=== PATIENT | female | born 1945 | race Caucasian/White ===

== ENCOUNTER 2016-06-24 14:47 | Emergency (ER) | payer MEDICARE ==
[2016-06-24] MEDS ORDERED: ASPIRIN 81 MG TABLET, CHEWABLE PO ONE ×2 (14:51→15:05)
--- NOTE | 2016-06-24 15:02 | ER Document Report ---
ED Medical Screen (RME) - General Chief Complaint: Chest Pain > 30 Stated Complaint: CHEST PAIN Time seen by provider: 14:53 Mode of Arrival: Wheelchair Information source: Patient Notes: 70-year-old female presents to ED from her doctor's office for chest pain and abnormal EKG. Left shoulder jaw and neck pain started yesterday and has progressively gotten worse. Denies any chest pain. Denies any shortness of breath nausea or vomiting She is a patient of Dr. Edwards and her primary care doctor was on the phone with Dr. EDWARDS before sending her over to the emergency room. She states she received aspirin and nitroglycerin at the doctor's office I have greeted and performed a rapid initial assessment of this patient. A comprehensive ED assessment and evaluation of the patient, analysis of test results and completion of medical decision making process will be conducted by an additional ED providers. TRAVEL OUTSIDE OF THE [place] IN LAST 30 DAYS: No - HPI Severity: Moderate Pain Level: 3
--- NOTE | 2016-06-24 15:43 | ER Document Report ---
ED General - General Chief Complaint: Shoulder Pain Stated Complaint: CHEST PAIN Time seen by provider: 15:20 Mode of Arrival: Wheelchair Information source: Patient Notes: 70-year-old female who states shortly after waking up yesterday morning she developed sharp pain over the anterior and superior left shoulder that is worse with range of motion. She reports her course today it has gotten worse and kept her up all last night. She reports during the night it began radiating into the left neck. She denies any history of specific injury. She does report a history of bursitis for which she seen Dr. Arambula in the past but states that her current symptoms don't feel like her previous bursitis pain. She denies associated chest pain, abdominal pain, back pain, numbness weakness to extremities, diaphoresis, shortness breath, nausea, or vomiting. Patient reports she's been followed by Dr. Moore for many years for a leaky heart valve but is never had any cardiac catheterization. She reports never having had an out abnormal stress test and will not do a stress test now because she's heard bad things about them. Today when her pain began radiating into her left jaw she went to see a dentist says it she was evaluated there and found not to have any dental problems causing her pain. She was then referred to immediate care where she says an EKG was obtained and found to be abnormal and personnel there call Dr. Moore who recommended patient come to the emergency department for further evaluation. The patient reports at no time has she had any type of chest pain pressure or tightness. Physical Exam: General: Alert, appears well. HEENT: Normocephalic. Atraumatic. PERRLA. Extraocular movements intact. Oropharynx clear. Neck: Supple. Rotation of head to the right produces her left-sided neck and shoulder pain. No bony deformities palpated Respiratory: No respiratory distress. Clear and equal breath sounds bilaterally. Nontender to palpation Cardiovascular: Regular rate and rhythm. 2/6 systolic murmur Abdominal: Normal Inspection. Soft, non-tender. No distension. Normal Bowel Sounds. Back: Non-tender. No deformity or step off. Extremities: Moves all four extremities. Patient has tenderness to palpation anteriorly and superiorly over the humeral head on the left. Palpation along her trapezius muscle reproduces patient's pain. Patient is able to demonstrate good range of motion at the left shoulder joint but elevation to 90 also reproduces her pain. No bony deformities are palpated. She has no tenderness over her scapula. Elbow and wrist have good range of motion without discomfort. Radial median and ulnar nerve function the left hand is intact and she has 2+ radial and ulnar pulses. 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 Psychological: Normal affect. Normal Mood. Skin: Warm. Dry. Normal color. TRAVEL OUTSIDE OF THE [place] IN LAST 30 DAYS: No - Related Data Allergies/Adverse Reactions: No Known Allergies Allergy (Verified 06/24/16 15:04) Past Medical History - General Information source: Patient - Social History Smoking Status: Current Every Day Smoker Chew tobacco use (# tins/day): Yes Family History: Hypertension Patient has suicidal ideation: No Patient has homicidal ideation: No - Past Medical History Cardiac Medical History: Reports: Hx Hypercholesterolemia, Hx Hypertension, Other - Heart valve problem followed by Dr. Moore Endocrine Medical History: Reports: Hx Diabetes Mellitus Type 2 Renal/ Medical History: Denies: Hx Peritoneal Dialysis Review of Systems - Review of Systems Constitutional: denies: Chills, Fever EENT: denies: Ear pain, Throat pain Cardiovascular: See HPI Respiratory: See HPI Gastrointestinal: denies: Abdominal pain, Diarrhea, Nausea, Vomiting Genitourinary: denies: Burning, Dysuria Musculoskeletal: denies: Back pain Neurological/Psychological: denies: Weakness, Numbness Physical Exam - Vital signs Vitals: Resp Pulse Ox 17 98 06/24/16 15:23 06/24/16 15:23 Course - Re-evaluation Re-evalutation: 06/24/16 18:03 Shortly after patient's arrival I discussed case with her beer brewer Dr. Moore area he reports that he been told by immediate care that they could not health patient was having chest pain or shoulder pain and on that basis he recommended patient go to the emergency department. I discussed my findings that the pain the patient is complaining of is exclusively in her shoulder and made worse with range of motion and EKG findings do not show any evidence of acute ischemia he request patient be discharged on Tylenol with follow-up with him tomorrow. My suspicion is that her discomfort is cardiac is remote and she has had no change in her exam during her stay in emergency department. She is mildly hypertensive but I think this is likely due in part pain in part to her stay in the emergency department and does not require admission. I have asked her to also follow with Dr. Sanchez of orthopedics for further evaluation of her shoulder. - Vital Signs Vital signs: Temp Pulse Resp BP Pulse Ox 74 19 200/72 H 97 06/24/16 17:22 06/24/16 17:22 06/24/16 17:22 06/24/16 17:22 - Laboratory Result Diagrams: 06/24/16 15:44 06/24/16 15:44 Laboratory results interpreted by me: 06/24/16 06/24/16 15:44 15:44 WBC 16.8 H Hgb 11.7 L MCHC 31.1 L RDW 16.3 H Seg Neutrophils % 83.6 H Lymphocytes % 7.8 L Absolute Neutrophils 14.1 H Magnesium 1.5 L Creatine Kinase 21 L - EKG Interpretation by Me Additional EKG results interpreted by me: 06/24/16 15:44 EKG reviewed by myself shows sinus rhythm at 79 Q-wave in lead 3 no acute changes 06/24/16 18:02 EKG from intermediate care shows a sinus rhythm at 75 with Q-wave in lead 3 in no acute changes EKG #2 here shows sinus rhythm at 75 again with Q-wave in lead 3 and no acute changes Discharge - Discharge Clinical Impression: Shoulder pain, left Qualifiers: Chronicity: acute Qualified Code(s): M25.512 - Pain in left shoulder Hypertension Qualifiers: Hypertension type: essential hypertension Qualified Code(s): I10 - Essential ( primary) hypertension Condition: Stable Disposition: HOME, SELF-CARE Additional Instructions: High Blood Pressure When your blood pressure was taken today it was elevated. Today's reading was . Pre-hypertension/Hypertension: The patient has been informed that they may have pre-hypertension or Hypertension based on a blood pressure reading in the emergency department. I recommend that the patient call the primary care provider listed on their dischargge instructions or a physician of their choice this wee to arrage follow up for further evaluation of possible pre- hypertension or Hypertension. Sometimes, stress or illness causes a temporary elevation of your blood pressure. We suggest that you get your blood pressure measured three more times during the next few days to see if this is more than a temporary abnormality. If your blood pressure is greater than 150/90 on each occasion, you must have treatment. Some simple things you can do to help are: If you have blood pressure medicine but aren't using it regularly, start taking it again. Get some aerobic exercise for at least 20 minutes on a daily basis. (See your doctor before beginning a new exercise program.) Eat a low-fat diet. Lose excess weight. Avoid salty foods and avoid adding salt to any of the foods you eat. Avoid diet pills, decongestants, "energizing" herbs, and other medicines that elevate blood pressure. If left untreated, hypertension greatly enhances your risk for developing heart disease and strokes. Please don't ignore this problem. Referrals: MEDINA MOORE MD [ACTIVE STAFF] - Follow up tomorrow CHILANGO ARAMBULA MD [ACTIVE STAFF] - Follow up in 1 week
[2016-06-24 15:58] LABS: ABSOLUTE BASOPHILS # (AUTO) 0.1 10^3/uL (0.0-0.2); ABSOLUTE EOSINOPHILS # (AUTO) 0.1 10^3/uL (0.0-0.6); ABSOLUTE LYMPHOCYTES (AUTO) 1.3 10^3/uL (0.5-4.7); ABSOLUTE MONOCYTES (AUTO) 1.3 10^3/uL (0.1-1.4); ABSOLUTE NEUT (AUTO) 14.1 10^3/uL (1.7-8.2); BASOPHILS % (AUTO) 0.7 % (0-2); EOSINOPHILS % (AUTO) 0.4 % (0-6); HEMATOCRIT 37.6 % (36.0-47.0); HEMOGLOBIN 11.7 g/dL (12.0-15.5); HGB HCT DIFFERENCE -2.5; LYMPHOCYTES % (AUTO) 7.8 % (13-45); MEAN CORPUSCULAR HEMOGLOBIN 27.1 pg (27.0-33.4); MEAN CORPUSCULAR HGB CONC 31.1 g/dL (32.0-36.0); MEAN CORPUSCULAR VOLUME 87 fl (80-97); MONOCYTES % (AUTO) 7.5 % (3-13); RED BLOOD COUNT 4.31 10^6/uL (3.72-5.28); RED CELL DISTRIBUTION WIDTH 16.3 % (11.5-14.0); SEGMENTED NEUTROPHILS % (AUTO) 83.6 % (42-78); WHITE BLOOD COUNT 16.8 10^3/uL (4.0-10.5)
[2016-06-24 16:03] LABS: PROTHROMBIN TIME 12.2 SEC (11.4-15.4)
[2016-06-24 16:04] LABS: PARTIAL THROMBOPLASTIN TIME 29.9 SEC (23.5-35.8)
[2016-06-24 16:24] LABS: ALANINE AMINOTRANSFERASE 22 U/L (9-52); ALBUMIN 4.3 g/dL (3.5-5.0); ALKALINE PHOSPHATASE 123 U/L (38-126); ANION GAP 12 (5-19); ASPARTATE AMINO TRANSFERASE 20 U/L (14-36); BILIRUBIN,TOTAL 0.4 mg/dL (0.2-1.3); BLOOD UREA NITROGEN 15 mg/dL (7-20); CALCIUM 10.1 mg/dL (8.4-10.2); CARBON DIOXIDE 25 mmol/L (22-30); CHLORIDE 105 mmol/L (98-107); CREATINE KINASE 21 U/L (30-135); CREATININE RESULT 0.67 mg/dL (0.52-1.25); GLUCOSE 109 mg/dL (75-110); MAGNESIUM 1.5 mg/dL (1.6-2.3); POTASSIUM 4.3 mmol/L (3.6-5.0); SODIUM 142.2 mmol/L (137-145); TOTAL PROTEIN 6.9 g/dL (6.3-8.2)
[2016-06-24 16:38] LABS: TROPONIN I < 0.012 ng/mL
[2016-06-24] MEDS ORDERED: MAGNESIUM SULFATE/D5W 100 ML IV ONE (16:45)
[2016-06-24] MEDS ORDERED: MORPHINE SULFATE 10 MG/ML INJ IV ONE (18:06)
--- NOTE | 2016-06-24 19:01 | EKG REPORT ---
SEVERITY:- ABNORMAL ECG - SINUS RHYTHM PROBABLE INFERIOR INFARCT, OLD : Confirmed by: Yadiel Mena MD 24-Jun-2016 18:59:59
--- NOTE | 2016-06-24 19:01 | EKG REPORT ---
SEVERITY:- ABNORMAL ECG - SINUS RHYTHM PROBABLE INFERIOR INFARCT, OLD : Confirmed by: Yadiel Mena MD 24-Jun-2016 19:00:24
[2016-06-24 19:03] VITALS: BP 226/64
== END 2016-06-24 19:08 | disposition home or self-care (01) ==
LOC: ER 14:47
DX: M25.512 Pain in left shoulder (principal); I10 Essential (primary) hypertension; R07.9 Chest pain, unspecified; F17.210 Nicotine dependence, cigarettes, uncomplicated; E78.00 Pure hypercholesterolemia, unspecified; E11.9 Type 2 diabetes mellitus without complications
CPT/HCPCS: 93005; 99285; 96375; 96365; 36415; 82553; 82550; 83735; 85025; 85610; 85730; 80053; 84484; 71010; 73030; 93010; A9270; J2270; J3475

== ENCOUNTER → 2016-12-17 | Outpatient (CLI) | payer MEDICARE ==
[2016-12-17 09:55] LABS: ABSOLUTE BASOPHILS # (AUTO) 0.1 10^3/uL (0.0-0.2); ABSOLUTE EOSINOPHILS # (AUTO) 0.2 10^3/uL (0.0-0.6); ABSOLUTE LYMPHOCYTES (AUTO) 1.4 10^3/uL (0.5-4.7); ABSOLUTE MONOCYTES (AUTO) 0.5 10^3/uL (0.1-1.4); ABSOLUTE NEUT (AUTO) 6.5 10^3/uL (1.7-8.2); EOSINOPHILS % (AUTO) 2.7 % (0-6); HEMATOCRIT 34.5 % (36.0-47.0); HEMOGLOBIN 11.1 g/dL (12.0-15.5); HGB HCT DIFFERENCE -1.2; MEAN CORPUSCULAR HGB CONC 32.3 g/dL (32.0-36.0); MEAN CORPUSCULAR VOLUME 84 fl (80-97); MONOCYTES % (AUTO) 6.1 % (3-13); RED BLOOD COUNT 4.13 10^6/uL (3.72-5.28); RED CELL DISTRIBUTION WIDTH 16.8 % (11.5-14.0); SEGMENTED NEUTROPHILS % (AUTO) 74.2 % (42-78); WHITE BLOOD COUNT 8.8 10^3/uL (4.0-10.5)
[2016-12-17 10:23] LABS: ALANINE AMINOTRANSFERASE 24 U/L (9-52); ALBUMIN 3.8 g/dL (3.5-5.0); ALKALINE PHOSPHATASE 113 U/L (38-126); ANION GAP 9 (5-19); ASPARTATE AMINO TRANSFERASE 19 U/L (14-36); BILIRUBIN,DIRECT 0.3 mg/dL (0.0-0.4); BILIRUBIN,TOTAL 0.3 mg/dL (0.2-1.3); BLOOD UREA NITROGEN 14 mg/dL (7-20); CALCIUM 9.7 mg/dL (8.4-10.2); CARBON DIOXIDE 26 mmol/L (22-30); CHLORIDE 107 mmol/L (98-107); CHOLESTEROL 155.01 mg/dL (0-200); CREATININE RESULT 0.72 mg/dL (0.52-1.25); Direct HDL 56 mg/dL (>40); GLUCOSE 117 mg/dL (75-110); POTASSIUM 5.2 mmol/L (3.6-5.0); SODIUM 142.2 mmol/L (137-145); TOTAL PROTEIN 6.9 g/dL (6.3-8.2); TRIGLYCERIDES 166 mg/dL (<150)
[2016-12-17 10:35] LABS: DIRECT LDL 73 mg/dL (<100)
[2016-12-17 10:39] LABS: VLDL CHOLESTEROL 33.2 mg/dL (10-31)
[2016-12-19 10:39] LABS: INSULIN 6.1 uIU/mL (2.6-24.9); MICROALBUMIN RANDOM URINE 245.5 ug/mL (Not Estab.)
== END ==
LOC: OD 08:58
PROVIDERS: ATTEND Family Medicine
DX: I10 Essential (primary) hypertension (principal); E78.5 Hyperlipidemia, unspecified; E11.9 Type 2 diabetes mellitus without complications; I35.1 Nonrheumatic aortic (valve) insufficiency; J43.9 Emphysema, unspecified; F17.210 Nicotine dependence, cigarettes, uncomplicated; M75.52 Bursitis of left shoulder; Z79.899 Other long term (current) drug therapy
CPT/HCPCS: 36415; 80053; 80061; 82043; 82977; 83036; 83525; 85025

== ENCOUNTER → 2018-08-24 | Outpatient (CLI) | payer MEDICARE ==
--- NOTE | 2018-08-24 16:37 | WOMENS IMAGING REPORT ---
EXAM DESCRIPTION: BILAT SCREENING MAMMO W/CAD COMPLETED DATE/TIME: 08/24/2018 10:26 am REASON FOR STUDY: Z12.31 ROUTINE BILATERAL SCREENING Z12.31 ENCNTR SCREEN MAMMOGRAM FOR MALIGNANT N EOPLASM OF DAVID COMPARISON: Multiple since 2013 TECHNIQUE: Standard craniocaudal and mediolateral oblique views of each breast recorded using Serious Parodya l acquisition. LIMITATIONS: None. FINDINGS: No masses, calcifications or architectural distortion. No areas of suspicion. Read with the assistance of CAD. .[facility] - R2 Cenova Version 1.3 .[facility] - R2 Cenova Version 2.1 .[facility] - R2 Cenova Version 2.4 .[facility] - R2 Cenova Version 2.4 .[facility] - R2 Stone Lathe Operator Version 9.2 IMPRESSION: NORMAL MAMMOGRAM. BIRADS 1. BREAST DENSITY: b. There are scattered areas of fibroglandular density. BIRAD: 1 NEGATIVE RECOMMENDATION: ROUTINE SCREENING COMMENT: The patient has been notified of the results by letter per SA requirements. Additional no tification policies are in place for contacting patient with suspicious or incomplete findings. Quality ID #[id number]: The [employer] recommends an annual screening mammogram for women aged 40 years or over. This facility utilizes a reminder system to ensure that all patients receive reminder letters, and/or direct phone calls for appointments. This includes reminders for routine scr eening mammograms, diagnostic mammograms, or other Breast Imaging Interventions when appropriate. Th is patient will be placed in the appropriate reminder system. The [employer] (ACR) has developed recommendations for screening MRI of the breast s in certain patient populations, to be used in conjunction with mammography. Breast MRI surveillanc e may be appropriate for women with more than 20% lifetime risk of developing breast cancer as deter mined by genetic testing, significant family history of the disease, or history of mantle radiation f or Hodgkins Disease. ACR Practice Guidelines 2008. TECHNICAL DOCUMENTATION: FINDING NUMBER: (1) ASSESSMENT: (1) JOB ID: [id number] [employer]- All Rights Reserved Reading location - IP/workstation name: [email or web address]
== END ==
LOC: WI 10:11
PROVIDERS: ATTEND Family Medicine
DX: Z12.31 Encounter for screening mammogram for malignant neoplasm of breast (principal)
CPT/HCPCS: 77067

== ENCOUNTER 2018-10-16 10:47 | Inpatient (IN) | payer MEDICARE ==
[2018-10-16 11:34] LABS: HEMATOCRIT 36.5 % (36.0-47.0); MEAN CORPUSCULAR HEMOGLOBIN 27.5 pg (27.0-33.4); MEAN CORPUSCULAR HGB CONC 32.8 g/dL (32.0-36.0); MEAN CORPUSCULAR VOLUME 84 fl (80-97); PLATELET COUNT 298 10^3/uL (150-450); RED BLOOD COUNT 4.36 10^6/uL (3.72-5.28); RED CELL DISTRIBUTION WIDTH 22.8 % (11.5-14.0); WHITE BLOOD COUNT 16.5 10^3/uL (4.0-10.5)
--- NOTE | 2018-10-16 11:41 | ER Document Report ---
ED General - General Chief Complaint: Breathing Difficulty Stated Complaint: COUGH/FEVER/SWEATING Time Seen by Provider: 10/16/18 11:35 Primary Care Provider: MEDINA MOORE MD [ACTIVE STAFF] - Follow up as needed TRAVEL OUTSIDE OF THE [place] IN LAST 30 DAYS: No - HPI Notes: Critically ill-appearing patient presents from her doctor's office for hypoxia. Patient has been suffering for 3 to 4 days with increased work of breathing, productive cough intermittent fever. Patient was found to be hypoxic at doctor's office of 83% on room air. Patient does not chronically wear oxygen. She also endorses decreased exercise tolerance for the last few days. - Related Data Allergies/Adverse Reactions: No Known Allergies Allergy (Verified 06/24/16 15:04) Past Medical History - Social History Smoking Status: Current Every Day Smoker Family History: Hypertension - Past Medical History Cardiac Medical History: Reports: Hx Hypercholesterolemia, Hx Hypertension Endocrine Medical History: Reports: Hx Diabetes Mellitus Type 2 Renal/ Medical History: Denies: Hx Peritoneal Dialysis Review of Systems - Review of Systems Notes: REVIEW OF SYSTEMS: CONSTITUTIONAL: Positive fevers, -chills EENT: -eye pain, -difficulty swallowing, -nasal congestion CARDIOVASCULAR: -chest pain, -syncope. RESPIRATORY: Positive for cough, shortness of breath GASTROINTESTINAL: -abdominal pain, -nausea, -vomiting, -diarrhea GENITOURINARY: -dysuria, -hematuria MUSCULOSKELETAL: -back pain, -neck pain SKIN: -rash or skin lesions. HEMATOLOGIC: -easy bruising or bleeding. LYMPHATIC: -swollen, enlarged glands. NEUROLOGICAL: -altered mental status or loss of consciousness, -headache, - neurologic symptoms PSYCHIATRIC: -anxiety, -depression. ALL OTHER SYSTEMS REVIEWED AND NEGATIVE. Physical Exam - Vital signs Vitals: Temp Pulse BP Pulse Ox 98.1 F 90 149/47 H 83 L 10/16/18 10:54 10/16/18 10:54 10/16/18 10:54 10/16/18 10:54 - Notes Notes: PHYSICAL EXAMINATION: GENERAL: Well-appearing, well-nourished and in severe acute distress. HEAD: Atraumatic, normocephalic. EYES: Pupils equal round and reactive to light, extraocular movements intact, sclera anicteric, conjunctiva are normal. ENT: nares patent, oropharynx clear without exudates. Moist mucous membranes. NECK: Normal range of motion, supple without lymphadenopathy LUNGS: Mild respiratory distress, tachypnea HEART: Regular rate and rhythm without murmurs ABDOMEN: Soft, nontender, normoactive bowel sounds. No guarding, no rebound. No masses appreciated. EXTREMITIES: Normal range of motion, no pitting or edema. No cyanosis. NEUROLOGICAL: Cranial nerves grossly intact. Normal speech, normal gait. Normal sensory and motor exams. PSYCH: Normal mood, normal affect. SKIN: Warm, Dry, normal turgor, no rashes or lesions noted. Course - Re-evaluation Re-evalutation: 10/16/18 11:43 Ill-appearing female presents from her doctor's office hypoxia and tachypnea. Multiple labs drawn urgently along with EKG that shows no ischemic changes, chest x-ray ordered to possible pneumonia versus COPD flare 10/16/18 12:36 Critically ill-appearing patient found to have profound leukocytosis, chest x- ray findings right upper lobe pneumonia. Patient given ample fluid resuscitation of 2 L fluid in the emergency department. Blood cultures drawn at this time. Patient will be started on ceftriaxone and Cipro for broad-spectrum antibiotic coverage. Blood cultures drawn prior to administration of antibiotics. Patient 0.4 L nasal cannula to maintain oxygen saturations greater than 90%. Patient will be admitted to our telemetry - Vital Signs Vital signs: Temp Pulse Resp BP Pulse Ox 98.1 F 90 26 H 149/47 H 93 10/16/18 10:54 10/16/18 10:54 10/16/18 11:16 10/16/18 10:54 10/16/18 11:18 - Laboratory Result Diagrams: 10/16/18 11:13 10/16/18 11:13 Laboratory results interpreted by me: 10/16/18 10/16/18 10/16/18 11:13 11:13 11:52 WBC 16.5 H RDW 22.8 H Seg Neuts % (Manual) 94 H Band Neutrophils % 1 L Lymphocytes % (Manual) 2 L Abs Neuts (Manual) 15.7 H Abs Lymphs (Manual) 0.3 L BUN 34 H Glucose 204 H Alkaline Phosphatase 133 H Total Protein 5.7 L Albumin 2.8 L Urine Protein 100 H Urine Glucose (UA) 150 H - EKG Interpretation by Ks EKG shows normal: Sinus rhythm Rate: Normal Rhythm: NSR When compared to previous EKG there are: No significant change Additional EKG results interpreted by me: 10/16/18 11:36 ST elevations or depressions, no pathologic T wave inversions. Critical Care Note - Critical Care Note Total time excluding time spent on procedures (mins): 38 Discharge - Discharge Clinical Impression: Hypoxia, Sepsis Acute respiratory failure Qualifiers: Respiratory failure complication: hypoxia Qualified Code(s): J96.01 - Acute respiratory failure with hypoxia Pneumonia Qualifiers: Pneumonia type: due to unspecified organism Laterality: right Lung location: upper lobe of lung Qualified Code(s): J18.1 - Lobar pneumonia, unspecified organism Disposition: ADMITTED INPATIENT Admitting Provider: Richelle Lewis Unit Admitted: Telemetry Referrals: MEDINA MOORE MD [ACTIVE STAFF] - Follow up as needed
[2018-10-16 11:52] LABS: ALANINE AMINOTRANSFERASE 35 U/L (9-52); ALBUMIN 2.8 g/dL (3.5-5.0); ALKALINE PHOSPHATASE 133 U/L (38-126); ANION GAP 13 (5-19); ASPARTATE AMINO TRANSFERASE 25 U/L (14-36); BILIRUBIN,DIRECT 0.3 mg/dL (0.0-0.4); BILIRUBIN,TOTAL 0.4 mg/dL (0.2-1.3); BLOOD UREA NITROGEN 34 mg/dL (7-20); CARBON DIOXIDE 23 mmol/L (22-30); CHLORIDE 106 mmol/L (98-107); GLUCOSE 204 mg/dL (75-110); POTASSIUM 4.6 mmol/L (3.6-5.0); SODIUM 142.1 mmol/L (137-145); TOTAL PROTEIN 5.7 g/dL (6.3-8.2)
[2018-10-16 12:03] LABS: ABSOLUTE LYMPHOCYTES# (MANUAL) 0.3 10^3/uL (0.5-4.7); ABSOLUTE MONOCYTES # (MANUAL) 0.5 10^3/uL (0.1-1.4); ABSOLUTE NEUTROPHILS# (MANUAL) 15.7 10^3/uL (1.7-8.2); BAND NEUTROPHILS % (MANUAL) 1 % (3-5); BASOPHILS % (MANUAL) 0 % (0-2); EOSINOPHILS % (MANUAL) 0 % (0-6); LYMPHOCYTES % (MANUAL) 2 % (13-45); MONOCYTES % (MANUAL) 3 % (3-13); SEGMENTED NEUTROPHILS % (MAN) 94 % (42-78); TOTAL CELLS COUNTED 100
[2018-10-16 12:04] LABS: ANISOCYTOSIS 3+; TOXIC VACUOLATION PRESENT
[2018-10-16 12:05] LABS: OVALOCYTES SLIGHT; PLATELET COMMENT ADEQUATE; POIKILOCYTOSIS SLIGHT; SCHISTOCYTES SLIGHT; TEAR DROP CELLS SLIGHT
[2018-10-16 12:18] LABS: AMORPHOUS SEDIMENT,URINE TRACE /HPF; APPEARANCE,URINE CLOUDY; BILIRUBIN,URINE NEGATIVE (NEGATIVE); COLOR,URINE AMBER; GLUCOSE, URINE 150 mg/dL (NEGATIVE); KETONES,URINE NEGATIVE (NEGATIVE); LEUKOCYTE ESTERASE,URINE NEGATIVE (NEGATIVE); NITRITE,URINE NEGATIVE (NEGATIVE); PROTEIN,URINE 100 mg/dL (NEGATIVE); URINE SPECIFIC GRAVITY 1.027; UROBILINOGEN,URINE NEGATIVE mg/dL (<2.0)
--- NOTE | 2018-10-16 12:33 | RADIOLOGY REPORT (SQ) ---
EXAM DESCRIPTION: CHEST 2 VIEWS COMPLETED DATE/TIME: 10/16/2018 12:17 pm REASON FOR STUDY: COugh COMPARISON: 06/24/2016 EXAM PARAMETERS: NUMBER OF VIEWS: two views TECHNIQUE: Digital Frontal and Lateral radiographic views of the chest acquired. RADIATION DOSE: NA LIMITATIONS: none FINDINGS: LUNGS AND PLEURA: There is dense opacification of the right upper lung laterally. MEDIASTINUM AND HILAR STRUCTURES: No masses or contour abnormalities. HEART AND VASCULAR STRUCTURES: Heart normal size. No evidence for failure. BONES: No acute findings. HARDWARE: None in the chest. OTHER: No other significant finding. IMPRESSION: Right upper lobe pneumonia. TECHNICAL DOCUMENTATION: JOB ID: [id number] [employer]- All Rights Reserved Reading location - IP/workstation name: [email or web address]
[2018-10-16] MEDS ORDERED: AZITHROMYCIN INJ 500 MG VIAL IV ONE (12:34)
[2018-10-16] MEDS ORDERED: CEFTRIAXONE 1 GM/D5W RTU 1 GM/50 ML RTUPB IV ONE (12:34)
--- NOTE | 2018-10-16 13:03 | EKG REPORT ---
SEVERITY:- ABNORMAL ECG - SINUS RHYTHM LEFT VENTRICULAR HYPERTROPHY INFERIOR INFARCT, OLD CONSIDER ANTERIOR INFARCT : Confirmed by: Yadiel Mena MD 16-Oct-2018 13:02:37
[2018-10-16] MEDS ORDERED: ACETAMINOPHEN 325 MG TABLET PO PRN (13:49)
[2018-10-16] MEDS ORDERED: LEVALBUTEROL HCL NEB 1.25 MG/3 ML AMPUL NEB PRN (13:49)
[2018-10-16] MEDS: IPRATROPIUM/ALBUTEROL 0.5-2.5 MG/3 ML AMPUL NEB SCH ×2 (14:16→20:06)
[2018-10-16] MEDS ORDERED: METHYLPREDNISOLONE INJ 125 MG/2 ML SDV IV ONE (15:39)
--- NOTE | 2018-10-16 15:54 | PDOC H&P ---
History of Present Illness Admission Date/PCP: 10/16/18 12:45 ORIN DOHERTY MD Patient complains of: Shortness of breath History of Present Illness: VAL MACIEL is a 73 year old female with a PMH of COPD, HTN, HLD, iron deficiency anemia, valvular heart disease. She presents to [facility] ED for shortness of breath. Patient endorses a 4-day history of cough, wheezing, intermittent fevers and generalized fatigue. Patient was unable to sleep last night, woke up with a fever (unknown temperature) this morning, which prompted her to come to the emergency department. Upon admission, patient's initial SPO2 was 83% on room air. Of note, she does not wear supplemental oxygen at home. Laboratory studies are otherwise benign. CXR reveals RUL lobar infiltrate. Patient was started on azithromycin and Rocephin IV by emergency department physician. Upon assessment, she is resting comfortably in bed on supplemental oxygen via nasal cannula. The patient is able to answer all questions appropriately and speak in full sentences without pause. Rhonchi and slight wheezing can be heard in the RUL and RML, other lung darling are clear. No evidence of peripheral or central cyanosis. S1-S2. Palpable pulses in the upper and lower extremities, no evidence of peripheral edema. Plan to admit patient to hospitalist service for COPD exacerbation and community-acquired pneumonia. Past Medical History Past Medical History: Valvular heart disease Cardiac Medical History: Reports: Hyperlipidema, Hypertension Pulmonary Medical History: Reports: Chronic Obstructive Pulmonary Disease (COPD) Endocrine Medical History: Reports: Diabetes Mellitus Type 2 Past Surgical History Past Surgical History: Reports: None Social History Information Source: Patient Lives with: Family Smoking Status: Current Every Day Smoker Number of Years Smokin Frequency of Alcohol Use: None Hx Recreational Drug Use: No Drugs: None Hx Prescription Drug Abuse: No - Advance Directive Resuscitation Status: Full Code Family History Family History: Hyperlipidemia, Hypertension, Other - Renal disease Parental Family History Reviewed: Yes Children Family History Reviewed: Yes Sibling(s) Family History Reviewed.: Yes Medication/Allergy Home Medications: Aspirin [Aspirin 325 mg Tablet] 325 mg PO QAM 10/16/18 Cholecalciferol (Vitamin D3) [Vitamin D3 1000 Unit Tablet] 1,000 mg PO DAILY 10/16/18 Clopidogrel Bisulfate [Plavix 75 mg Tablet] 75 mg PO QAM 10/16/18 Diltiazem HCl [Cardizem Cd 180 mg Capsule] 360 mg PO DAILY 10/16/18 Docusate Sodium [Colace 100 mg Capsule] 100 mg PO DAILY 10/16/18 Ezetimibe [Zetia 10 mg Tablet] 10 mg PO QPM 10/16/18 Ferrous Sulfate [Feosol 325 mg Tablet] 325 mg PO DAILY 10/16/18 Hydrochlorothiazide [Hydrodiuril 12.5 mg Tablet] 12.5 mg PO QAM 10/16/18 Lorazepam [Ativan 1 mg Tablet] 1 mg PO HSP PRN 10/16/18 Losartan Potassium [Cozaar 100 mg Tablet] 100 mg PO QPM 10/16/18 Lovastatin [Altoprev] 20 mg PO QPM 10/16/18 Metoprolol Succinate [Toprol Xl 50 mg Tab.sr] 50 mg PO QPM 10/16/18 Multivitamin [Multiple Vitamins] 1 tab PO DAILY 10/16/18 [place]-3/Dha/Epa/Fish Oil [Fish Oil 1,000 mg Softgel] 2,000 mg PO DAILY 10/16/18 Omeprazole 20 mg PO QAM 10/16/18 Pyridoxine HCl [Vitamin B-6] 100 mg PO DAILY 10/16/18 Saxagliptin HCl/Metformin HCl [Kombiglyze Xr 2.5-1,000 mg Tab] 1 tab PO BID 10/16/18 Umeclidinium Brm/Vilanterol Tr [Anoro Ellipta 62.5-25 Mcg INH] 1 puff IH QA 10/16/18 Allergies/Adverse Reactions: No Known Allergies Allergy (Verified 06/24/16 15:04) Review of Systems All systems: reviewed and no additional remarkable complaints except as stated Physical Exam Vital Signs: Temp Pulse Resp BP Pulse Ox 98.3 F 91 18 166/56 H 95 10/16/18 12:55 10/16/18 14:16 10/16/18 14:16 10/16/18 14:05 10/16/18 14:16 Intake & Output 10/15/18 10/16/18 10/17/18 06:59 06:59 06:59 Intake Total 50 Balance 50 Weight 68.039 kg General appearance: PRESENT: well-developed, well-nourished Head exam: PRESENT: atraumatic Eye exam: PRESENT: conjunctiva pink, PERRLA Mouth exam: PRESENT: moist, tongue midline Neck exam: PRESENT: full ROM Respiratory exam: PRESENT: rhonchi - RUL RML, symmetrical, unlabored Cardiovascular exam: PRESENT: RRR Pulses: PRESENT: normal radial pulses, normal dorsalis pedis pul Vascular exam: PRESENT: normal capillary refill GI/Abdominal exam: PRESENT: soft. ABSENT: distended, tenderness Rectal exam: PRESENT: deferred Extremities exam: PRESENT: full ROM, pedal edema Musculoskeletal exam: PRESENT: ambulatory, full ROM Neurological exam: PRESENT: alert, awake, oriented to person, oriented to place, oriented to time, oriented to situation Psychiatric exam: PRESENT: appropriate affect Skin exam: PRESENT: dry, intact, normal color Results Laboratory Results: 10/16/18 11:13 10/16/18 11:13 10/16/18 10/16/18 10/16/18 11:13 11:13 11:47 WBC 16.5 H RBC 4.36 Hgb 12.0 Hct 36.5 MCV 84 MCH 27.5 MCHC 32.8 RDW 22.8 H Plt Count 298 Seg Neutrophils % Not Reportable Lymphocytes % Not Reportable Monocytes % Not Reportable Eosinophils % Not Reportable Basophils % Not Reportable Absolute Neutrophils Not Reportable Absolute Lymphocytes Not Reportable Absolute Monocytes Not Reportable Absolute Eosinophils Not Reportable Absolute Basophils Not Reportable Sodium 142.1 Potassium 4.6 Chloride 106 Carbon Dioxide 23 Anion Gap 13 BUN 34 H Creatinine 0.92 Est GFR ( Amer) > 60 Est GFR (Non-Af Amer) > 60 Glucose 204 H Lactic Acid 1.7 Calcium 9.0 Total Bilirubin 0.4 AST 25 ALT 35 Alkaline Phosphatase 133 H Total Protein 5.7 L Albumin 2.8 L Urine Color Urine Appearance Urine pH Ur Specific [place] Urine Protein Urine Glucose (UA) Urine Ketones Urine Blood Urine Nitrite Ur Leukocyte Esterase Urine WBC (Auto) Urine RBC (Auto) 10/16/18 11:52 WBC RBC Hgb Hct MCV MCH MCHC RDW Plt Count Seg Neutrophils % Lymphocytes % Monocytes % Eosinophils % Basophils % Absolute Neutrophils Absolute Lymphocytes Absolute Monocytes Absolute Eosinophils Absolute Basophils Sodium Potassium Chloride Carbon Dioxide Anion Gap BUN Creatinine Est GFR ( Amer) Est GFR (Non-Af Amer) Glucose Lactic Acid Calcium Total Bilirubin AST ALT Alkaline Phosphatase Total Protein Albumin Urine Color KATE Urine Appearance CLOUDY Urine pH 5.0 Ur Specific [place] 1.027 Urine Protein 100 H Urine Glucose (UA) 150 H Urine Ketones NEGATIVE Urine Blood NEGATIVE Urine Nitrite NEGATIVE Ur Leukocyte Esterase NEGATIVE Urine WBC (Auto) 5 Urine RBC (Auto) 2 Impressions: Chest X-Ray 10/16/18 11:40 IMPRESSION: Right upper lobe pneumonia. Status: Imported from PACS Assessment and Plan - Diagnosis (1) Acute respiratory failure Qualifiers: Respiratory failure complication: hypoxia Qualified Code(s): J96.01 - Acute respiratory failure with hypoxia Is this a current diagnosis for this admission?: Yes Plan: Secondary to COPD exacerbation stemming from pneumonia Requiring supplemental oxygen via nasal cannula to maintain SPO2> 88% CXR shows RUL lobar pneumonia Sputum cultures Pending Initiate azithromycin and Rocephin IV for community acquired pneumonia Scheduled and PRN nebulizer treatments Scheduled IV Solu-Medrol Spirival and serevent Twice daily Mucinex Tylenol as needed for fever (2) Pneumonia Qualifiers: Pneumonia type: due to unspecified organism Laterality: right Lung location: upper lobe of lung Qualified Code(s): J18.1 - Lobar pneumonia, unspecified organism Is this a current diagnosis for this admission?: Yes Plan: plan as above (3) COPD (chronic obstructive pulmonary disease) Is this a current diagnosis for this admission?: Yes Plan: plan as above (4) HTN (hypertension) Is this a current diagnosis for this admission?: Yes Plan: [facility] HTN Resume home dose Toprol, HCTZ, Cardizem, Cozaar (5) HLD (hyperlipidemia) Is this a current diagnosis for this admission?: Yes Plan: [facility] HLD Lipid panel in a.m. Continue home dose statin therapy (6) Iron deficiency anemia Is this a current diagnosis for this admission?: Yes Plan: [facility] iron deficiency anemia Check iron studies in a.m. Continue home dose iron supplements - Time Time Spent with patient: 15-24 minutes Medications reviewed and adjusted accordingly: Yes Anticipated discharge: Home Within: within 24 hours - Inpatient Certification Based on my medical assessment, after consideration of the patient's comorbidities, presenting symptoms, or acuity I expect that the services needed warrant INPATIENT care.: Yes I certify that my determination is in accordance with my understanding of Medicare's requirements for reasonable and necessary INPATIENT services [42 CFR 412.3e].: Yes Medical Necessity: Risk of Complication if Not Cared For in Hospital
[2018-10-16] MEDS: FAMOTIDINE 20 MG TABLET PO SCH (21:32)
[2018-10-16] MEDS: GUAIFENESIN 600 MG TABLET.SA PO SCH (21:32)
[2018-10-16] MEDS: METHYLPREDNISOLONE INJ 40 MG/1 ML SDV IV SCH (21:33)
[2018-10-17] MEDS: METHYLPREDNISOLONE INJ 40 MG/1 ML SDV IV SCH ×3 (05:15→21:45)
[2018-10-17 06:12] LABS: HEMATOCRIT 32.6 % (36.0-47.0); HEMOGLOBIN 10.9 g/dL (12.0-15.5); MEAN CORPUSCULAR HEMOGLOBIN 27.4 pg (27.0-33.4); MEAN CORPUSCULAR HGB CONC 33.3 g/dL (32.0-36.0); MEAN CORPUSCULAR VOLUME 83 fl (80-97); PLATELET COUNT 287 10^3/uL (150-450); RED BLOOD COUNT 3.96 10^6/uL (3.72-5.28); RED CELL DISTRIBUTION WIDTH 22.3 % (11.5-14.0); WHITE BLOOD COUNT 15.3 10^3/uL (4.0-10.5)
[2018-10-17 06:25] LABS: ALANINE AMINOTRANSFERASE 36 U/L (9-52); ALBUMIN 2.6 g/dL (3.5-5.0); ALKALINE PHOSPHATASE 123 U/L (38-126); ANION GAP 13 (5-19); ASPARTATE AMINO TRANSFERASE 25 U/L (14-36); BILIRUBIN,DIRECT 0.4 mg/dL (0.0-0.4); BILIRUBIN,TOTAL 0.4 mg/dL (0.2-1.3); BLOOD UREA NITROGEN 34 mg/dL (7-20); CALCIUM 8.7 mg/dL (8.4-10.2); CARBON DIOXIDE 23 mmol/L (22-30); CHLORIDE 104 mmol/L (98-107); GLUCOSE 258 mg/dL (75-110); POTASSIUM 4.6 mmol/L (3.6-5.0); SODIUM 139.7 mmol/L (137-145); TOTAL PROTEIN 5.2 g/dL (6.3-8.2)
[2018-10-17 06:53] LABS: ABSOLUTE LYMPHOCYTES# (MANUAL) 0.3 10^3/uL (0.5-4.7); BAND NEUTROPHILS % (MANUAL) 1 % (3-5); BASOPHILS % (MANUAL) 0 % (0-2); EOSINOPHILS % (MANUAL) 0 % (0-6); LYMPHOCYTES % (MANUAL) 2 % (13-45); MONOCYTES % (MANUAL) 0 % (3-13); SEGMENTED NEUTROPHILS % (MAN) 97 % (42-78); TOTAL CELLS COUNTED 100
[2018-10-17 06:54] LABS: OVALOCYTES 1+; PLATELET COMMENT ADEQUATE
[2018-10-17 06:55] LABS: BURR CELLS 3+
[2018-10-17] MEDS: IPRATROPIUM/ALBUTEROL 0.5-2.5 MG/3 ML AMPUL NEB SCH ×3 (08:10→20:35)
[2018-10-17] MEDS ORDERED: (PENDING PHARMACY ID) (Umeclidinium Brm/Vilanterol Tr [Anoro Ellipta 62.5-25 Mcg Inh] 1 PU IH SCH ×2 (08:45→10:15)
[2018-10-17] MEDS ORDERED: CEFTRIAXONE 1 GM/D5W RTU 50 ML IV SCH (10:00)
[2018-10-17] MEDS ORDERED: (PENDING PHARMACY ID) (Pyridoxine Hcl [Vitamin B-6] 100 MG) PO SCH (10:00)
[2018-10-17] MEDS ORDERED: METFORMIN HCL PO SCH ×2 (10:00→11:00)
[2018-10-17] MEDS ORDERED: SAXAGLIPTIN HCL PO SCH ×2 (10:00→11:00)
[2018-10-17] MEDS ORDERED: [UNRECOGNIZED DRUG - OTHER] PO SCH ×2 (10:00→11:00)
[2018-10-17] MEDS: FAMOTIDINE 20 MG TABLET PO SCH ×2 (10:18→21:45)
[2018-10-17] MEDS: MULTIVITAMIN TABLET PO SCH (10:19)
[2018-10-17] MEDS: FERROUS SULFATE 325 MG TABLET PO SCH (10:19)
[2018-10-17] MEDS: GUAIFENESIN 600 MG TABLET.SA PO SCH ×2 (10:19→21:45)
[2018-10-17] MEDS: DILTIAZEM HCL 180 MG CAPSULE.CR PO SCH (10:20)
[2018-10-17] MEDS: CHOLECALCIFEROL (D3) 1,000 UNIT TABLET PO SCH (10:20)
[2018-10-17] MEDS: AZITHROMYCIN 500 MG in DEXTROSE 5%-WATER 250 ML IV SCH (10:21)
[2018-10-17] MEDS: CEFTRIAXONE SODIUM 1,000 MG in DEXTROSE 5%-WATER 50 ML IV SCH (10:21)
[2018-10-17] MEDS: ENOXAPARIN SODIUM INJ 30 MG/0.3 ML DISP.SYRIN SUBCUT SCH (10:22)
[2018-10-17] MEDS ORDERED: (PENDING PHARMACY ID) (Lovastatin [Altoprev] 20 MG) PO SCH ×2 (11:00→18:00)
[2018-10-17] MEDS: CLOPIDOGREL BISULFATE 75 MG TABLET PO SCH (11:50)
[2018-10-17] MEDS: PYRIDOXINE HCL 50 MG TABLET PO SCH (11:51)
[2018-10-17] MEDS: HYDROCHLOROTHIAZIDE 12.5 MG TABLET PO SCH (11:51)
[2018-10-17] MEDS: ASPIRIN 325 MG TABLET PO SCH (11:51)
[2018-10-17] MEDS: ATORVASTATIN CALCIUM 10 MG TABLET PO SCH (17:40)
[2018-10-17] MEDS: EZETIMIBE 10 MG TABLET PO SCH (17:40)
[2018-10-17] MEDS: LOSARTAN POTASSIUM 50 MG TABLET PO SCH (17:40)
[2018-10-17] MEDS: METOPROLOL SUCCINATE 50 MG TAB.SR.24H PO SCH (17:41)
[2018-10-17] MEDS ORDERED: METOPROLOL SUCCINATE 50 MG TAB.SR.24H PO SCH (18:00)
--- NOTE | 2018-10-17 21:06 | PDOC PROGRESS REPORT ---
Subjective Progress Note for:: 10/17/18 Subjective:: VAL MACIEL is a 73 year old female with a PMH of COPD, HTN, HLD, iron deficiency anemia, valvular heart disease. She presents to [facility] ED for shortness of breath. The patient is admitted to the hospitalist service for PNA and COPD exacerbation. The patient was seen this morning on rounds. She is resting comfortably in bed on NC. Her is at the bedside. The patient is able to answer all questions without pause. LCTA. (+) productive cough. The patient's blood pressure has been elevated throughout her hospitalization, despite being on her home anti-HTN regimen. Discussed with Dr. Santos (the patient's regional geodetic advisor) and will increase Toprol from 50mg daily to 50 mg BID. Plan to wean O2 and hopefully discharge home tomorrow. Reason For Visit: PNEUMONIA Physical Exam Vital Signs: Temp Pulse Resp BP Pulse Ox 97.8 F 84 18 159/87 H 92 10/17/18 16:00 10/17/18 20:35 10/17/18 20:35 10/17/18 16:00 10/17/18 20:35 Intake & Output 10/16/18 10/17/18 10/18/18 06:59 06:59 06:59 Intake Total 650 1260 Balance 650 1260 Weight 68.039 kg General appearance: PRESENT: well-developed, well-nourished Head exam: PRESENT: atraumatic Eye exam: PRESENT: conjunctiva pink, PERRLA Mouth exam: PRESENT: moist, tongue midline Teeth exam: PRESENT: poor dentation Neck exam: PRESENT: full ROM Respiratory exam: PRESENT: clear to auscultation rajan, symmetrical, unlabored Cardiovascular exam: PRESENT: RRR Pulses: PRESENT: normal radial pulses, normal dorsalis pedis pul Vascular exam: PRESENT: normal capillary refill GI/Abdominal exam: PRESENT: soft. ABSENT: distended, tenderness Rectal exam: PRESENT: deferred Extremities exam: PRESENT: full ROM. ABSENT: pedal edema Musculoskeletal exam: PRESENT: ambulatory, full ROM Neurological exam: PRESENT: alert, awake, oriented to person, oriented to place, oriented to time, oriented to situation Psychiatric exam: PRESENT: appropriate affect Skin exam: PRESENT: dry, intact, normal color Results Laboratory Results: 10/17/18 04:31 10/17/18 04:31 10/17/18 10/17/18 04:31 04:31 WBC 15.3 H RBC 3.96 Hgb 10.9 L Hct 32.6 L MCV 83 MCH 27.4 MCHC 33.3 RDW 22.3 H Plt Count 287 Seg Neutrophils % Not Reportable Lymphocytes % Not Reportable Monocytes % Not Reportable Eosinophils % Not Reportable Basophils % Not Reportable Absolute Neutrophils Not Reportable Absolute Lymphocytes Not Reportable Absolute Monocytes Not Reportable Absolute Eosinophils Not Reportable Absolute Basophils Not Reportable Sodium 139.7 Potassium 4.6 Chloride 104 Carbon Dioxide 23 Anion Gap 13 BUN 34 H Creatinine 0.81 Est GFR ( Amer) > 60 Est GFR (Non-Af Amer) > 60 Glucose 258 H Calcium 8.7 Total Bilirubin 0.4 AST 25 ALT 36 Alkaline Phosphatase 123 Total Protein 5.2 L Albumin 2.6 L 10/17/18 04:31 NT-Pro-B Natriuret Pep 2200 H Impressions: Chest X-Ray 10/16/18 11:40 IMPRESSION: Right upper lobe pneumonia. Status: Imported from PACS Assessment and Plan - Diagnosis (1) Acute respiratory failure Qualifiers: Respiratory failure complication: hypoxia Qualified Code(s): J96.01 - Acute respiratory failure with hypoxia Is this a current diagnosis for this admission?: Yes Plan: Secondary to COPD exacerbation stemming from pneumonia Requiring supplemental oxygen via nasal cannula to maintain SPO2> 88% CXR shows RUL lobar pneumonia Sputum cultures pending Continue azithromycin and Rocephin IV for community acquired pneumonia Scheduled and PRN nebulizer treatments Scheduled IV Solu-Medrol Spiriva and serevent Twice daily Mucinex Tylenol as needed for fever (2) Pneumonia Qualifiers: Pneumonia type: due to unspecified organism Laterality: right Lung location: upper lobe of lung Qualified Code(s): J18.1 - Lobar pneumonia, unspecified organism Is this a current diagnosis for this admission?: Yes Plan: plan as above (3) COPD (chronic obstructive pulmonary disease) Is this a current diagnosis for this admission?: Yes Plan: plan as above (4) HTN (hypertension) Is this a current diagnosis for this admission?: Yes Plan: PMH HTN Poor BP control, SBP 145-160 during hospitalization Continue home dose HCTZ, Cardizem, Cozaar Increased home Toprol dosage from 50 mg daily to 50 mg BID (5) HLD (hyperlipidemia) Is this a current diagnosis for this admission?: Yes Plan: PMH HLD Continue home dose statin therapy (6) Iron deficiency anemia Is this a current diagnosis for this admission?: Yes Plan: PMH iron deficiency anemia Check iron studies in a.m. Continue home dose iron supplements - Time Time Spent with patient: 15-24 minutes Medications reviewed and adjusted accordingly: Yes Anticipated discharge: Home Within: within 48 hours - Inpatient Certification Based on my medical assessment, after consideration of the patient's comorbidities, presenting symptoms, or acuity I expect that the services needed warrant INPATIENT care.: Yes I certify that my determination is in accordance with my understanding of Medicare's requirements for reasonable and necessary INPATIENT services [42 CFR 412.3e].: Yes Medical Necessity: Need for IV Antibiotics, Risk of Complication if Not Cared For in Hospital
[2018-10-17] MEDS: LORAZEPAM 1 MG TABLET PO PRN (21:45)
[2018-10-17] MEDS: HYDRALAZINE HCL INJ/PF 20 MG/1 ML SDV IV PRN (21:46)
[2018-10-18] MEDS: HYDRALAZINE HCL INJ/PF 20 MG/1 ML SDV IV PRN (03:51)
[2018-10-18] MEDS: METHYLPREDNISOLONE INJ 40 MG/1 ML SDV IV SCH ×3 (05:17→21:26)
[2018-10-18] MEDS: METOPROLOL SUCCINATE 50 MG TAB.SR.24H PO SCH ×2 (05:18→17:17)
[2018-10-18 06:02] LABS: ABSOLUTE RETICS # 0.019 10^6/uL (0.028-0.122); RETICULOCYTE COUNT (AUTO) 0.52 % (0.66-2.85)
[2018-10-18 06:20] LABS: CHOLESTEROL 80.36 mg/dL (0-200); IRON(TIBC) 11.8 ug/dL (37-170); TRIGLYCERIDES 130 mg/dL (<150)
[2018-10-18 06:31] LABS: DIRECT LDL 51 mg/dL (<100)
[2018-10-18] MEDS: IPRATROPIUM/ALBUTEROL 0.5-2.5 MG/3 ML AMPUL NEB SCH ×3 (08:49→20:16)
[2018-10-18] MEDS: HYDROCHLOROTHIAZIDE 12.5 MG TABLET PO SCH (09:19)
[2018-10-18] MEDS: FAMOTIDINE 20 MG TABLET PO SCH ×2 (09:19→21:27)
[2018-10-18] MEDS: CHOLECALCIFEROL (D3) 1,000 UNIT TABLET PO SCH (09:19)
[2018-10-18] MEDS: DILTIAZEM HCL 180 MG CAPSULE.CR PO SCH (09:19)
[2018-10-18] MEDS: ASPIRIN 325 MG TABLET PO SCH (09:19)
[2018-10-18] MEDS: GUAIFENESIN 600 MG TABLET.SA PO SCH ×2 (09:19→21:27)
[2018-10-18] MEDS: FERROUS SULFATE 325 MG TABLET PO SCH (09:20)
[2018-10-18] MEDS: MULTIVITAMIN TABLET PO SCH (09:20)
[2018-10-18] MEDS: CEFTRIAXONE SODIUM 1,000 MG in DEXTROSE 5%-WATER 50 ML IV SCH (09:20)
[2018-10-18] MEDS: CLOPIDOGREL BISULFATE 75 MG TABLET PO SCH (09:20)
[2018-10-18] MEDS: ENOXAPARIN SODIUM INJ 30 MG/0.3 ML DISP.SYRIN SUBCUT SCH (09:21)
[2018-10-18] MEDS: PYRIDOXINE HCL 50 MG TABLET PO SCH (09:30)
[2018-10-18] MEDS: AZITHROMYCIN 500 MG in DEXTROSE 5%-WATER 250 ML IV SCH (10:33)
[2018-10-18] MEDS: TIOTROPIUM BROMIDE DPI 5 CAP/KIT (18 MCG/CAP) IH SCH (14:27)
[2018-10-18] MEDS: SALMETEROL XINAFOATE DISKUS 50 MCG/1 DOSE 28 DOSE IH SCH ×2 (14:28→21:27)
[2018-10-18] MEDS ORDERED: POLYETHYLENE GLYCOL 3350 POWDER 17 GM/1 PACKET PO PRN (16:20)
--- NOTE | 2018-10-18 16:24 | PDOC PROGRESS REPORT ---
Subjective Progress Note for:: 10/18/18 Subjective:: VAL MACIEL is a 73 year old female with a PMH of COPD, HTN, HLD, iron deficiency anemia, valvular heart disease. She presents to [facility] ED for shortness of breath. The patient is admitted to the hospitalist service for PNA and COPD exacerbation. The patient was seen this morning on rounds. She is resting comfortably in bed on room air. Her is at the bedside. The patient states she feels "lousy" today, worse than yesterday. She endorses weakness, fatigue, general malaise. The patient is able to answer all questions without pause. LCTA. (+) productive cough. The patient's blood pressure has been elevated throughout her hospitalization, despite being on her home anti-HTN regimen. Yesterday, increased Toprol from 50mg daily to 50 mg BID. BP remains high. Will change Cardizem from 360mg daily to 180mg BID. Reason For Visit: PNEUMONIA Physical Exam Vital Signs: Temp Pulse Resp BP Pulse Ox 97.7 F 77 16 156/55 H 89 L 10/18/18 15:12 10/18/18 15:45 10/18/18 15:45 10/18/18 15:12 10/18/18 15:45 Intake & Output 10/17/18 10/18/18 10/19/18 06:59 06:59 06:59 Intake Total 650 1740 660 Output Total 200 Balance 650 1740 460 Weight 68.039 kg 68 kg General appearance: PRESENT: no acute distress, well-developed, well-nourished Head exam: PRESENT: atraumatic, normocephalic Eye exam: PRESENT: conjunctiva pink, EOMI, PERRLA. ABSENT: scleral icterus Ear exam: PRESENT: normal external ear exam Mouth exam: PRESENT: moist, tongue midline Neck exam: ABSENT: carotid bruit, JVD, lymphadenopathy, thyromegaly Respiratory exam: PRESENT: clear to auscultation rajan, symmetrical, unlabored. ABSENT: rales, rhonchi, wheezes Cardiovascular exam: PRESENT: RRR. ABSENT: diastolic murmur, rubs, systolic murmur Pulses: PRESENT: normal radial pulses, normal dorsalis pedis pul Vascular exam: PRESENT: normal capillary refill GI/Abdominal exam: PRESENT: normal bowel sounds, soft. ABSENT: distended, guarding, mass, organolmegaly, rebound, tenderness Rectal exam: PRESENT: deferred Extremities exam: PRESENT: full ROM. ABSENT: calf tenderness, clubbing, pedal edema Musculoskeletal exam: PRESENT: full ROM Neurological exam: PRESENT: alert, awake, oriented to person, oriented to place, oriented to time, oriented to situation Psychiatric exam: PRESENT: appropriate affect Skin exam: PRESENT: dry, intact, warm. ABSENT: cyanosis, rash Results Laboratory Results: 10/17/18 04:31 10/17/18 04:31 10/18/18 10/18/18 04:56 04:56 Retic Count (auto) 0.52 L Absolute Retic 0.019 L Iron 11.8 L TIBC 215 L % Saturation 5 Ferritin 341.00 H Triglycerides 130 Cholesterol 80.36 LDL Cholesterol Direct 51 VLDL Cholesterol 26.0 HDL Cholesterol 8 L Vitamin B12 491.0 Folate 11.60 10/17/18 04:31 NT-Pro-B Natriuret Pep 2200 H Impressions: Chest X-Ray 10/16/18 11:40 IMPRESSION: Right upper lobe pneumonia. Status: Imported from PACS Assessment and Plan - Diagnosis (1) Acute respiratory failure Qualifiers: Respiratory failure complication: hypoxia Qualified Code(s): J96.01 - Acute respiratory failure with hypoxia Is this a current diagnosis for this admission?: Yes Plan: Secondary to COPD exacerbation stemming from pneumonia Requiring supplemental oxygen via nasal cannula to maintain SPO2> 88% CXR shows RUL lobar pneumonia Sputum cultures pending Continue azithromycin and Rocephin IV for community acquired pneumonia Scheduled and PRN nebulizer treatments Scheduled IV Solu-Medrol Spiriva and serevent Twice daily Mucinex Tylenol as needed for fever Wean supplemental oxygen as tolerated (2) Pneumonia Qualifiers: Pneumonia type: due to unspecified organism Laterality: right Lung location: upper lobe of lung Qualified Code(s): J18.1 - Lobar pneumonia, unspecified organism Is this a current diagnosis for this admission?: Yes Plan: plan as above (3) COPD (chronic obstructive pulmonary disease) Is this a current diagnosis for this admission?: Yes Plan: plan as above (4) HTN (hypertension) Is this a current diagnosis for this admission?: Yes Plan: PMH HTN Poor BP control, SBP 145-160 during hospitalization Continue home dose HCTZ Increased home Toprol dosage from 50 mg daily to 50 mg BID Today, change Cardizem dosage from 360mg daily to 180 mg twice daily IV hydralazine and Lopressor PRN SBP>170 (5) HLD (hyperlipidemia) Is this a current diagnosis for this admission?: Yes Plan: PMH HLD Continue home dose statin therapy Lipid panel acceptable (6) Iron deficiency anemia Is this a current diagnosis for this admission?: Yes Plan: PMH iron deficiency anemia Iron, TIBC are low. Ferretin levels are high Continue home dose iron supplements - Time Medications reviewed and adjusted accordingly: Yes Anticipated discharge: Home Within: within 24 hours - Inpatient Certification Based on my medical assessment, after consideration of the patient's comorbidities, presenting symptoms, or acuity I expect that the services needed warrant INPATIENT care.: Yes I certify that my determination is in accordance with my understanding of Medicare's requirements for reasonable and necessary INPATIENT services [42 CFR 412.3e].: Yes Medical Necessity: Need For Continuous Telemetry Monitoring, Need for IV Antib iotics, Risk of Complication if Not Cared For in Hospital
[2018-10-18] MEDS: ATORVASTATIN CALCIUM 10 MG TABLET PO SCH (17:16)
[2018-10-18] MEDS: LOSARTAN POTASSIUM 50 MG TABLET PO SCH (17:17)
[2018-10-18] MEDS: EZETIMIBE 10 MG TABLET PO SCH (17:17)
[2018-10-18] MEDS: SENNOSIDES/DOCUSATE 8.6-50 MG 1 EACH TABLET PO SCH (17:43)
[2018-10-18] MEDS: LORAZEPAM 1 MG TABLET PO PRN (21:28)
[2018-10-19] MEDS: METOPROLOL SUCCINATE 50 MG TAB.SR.24H PO SCH ×2 (05:08→17:22)
[2018-10-19] MEDS: METHYLPREDNISOLONE INJ 40 MG/1 ML SDV IV SCH (05:09)
[2018-10-19] MEDS: IPRATROPIUM/ALBUTEROL 0.5-2.5 MG/3 ML AMPUL NEB SCH ×4 (08:05→20:23)
[2018-10-19] MEDS: CLOPIDOGREL BISULFATE 75 MG TABLET PO SCH (08:50)
[2018-10-19] MEDS: HYDROCHLOROTHIAZIDE 12.5 MG TABLET PO SCH (08:50)
[2018-10-19] MEDS: HYDRALAZINE HCL INJ/PF 20 MG/1 ML SDV IV PRN ×2 (08:50→17:22)
[2018-10-19] MEDS: ASPIRIN 325 MG TABLET PO SCH (08:50)
[2018-10-19 09:27] LABS: A TYPE INFLUENZA AG NEGATIVE (NEGATIVE); B INFLUENZA AG NEGATIVE (NEGATIVE)
[2018-10-19 09:36] LABS: HEMATOCRIT 32.1 % (36.0-47.0); HEMOGLOBIN 10.7 g/dL (12.0-15.5); MEAN CORPUSCULAR HEMOGLOBIN 27.6 pg (27.0-33.4); MEAN CORPUSCULAR HGB CONC 33.3 g/dL (32.0-36.0); MEAN CORPUSCULAR VOLUME 83 fl (80-97); PLATELET COUNT 481 10^3/uL (150-450); RED BLOOD COUNT 3.88 10^6/uL (3.72-5.28); RED CELL DISTRIBUTION WIDTH 22.3 % (11.5-14.0); WHITE BLOOD COUNT 12.8 10^3/uL (4.0-10.5)
[2018-10-19 09:57] LABS: ALANINE AMINOTRANSFERASE 82 U/L (9-52); ALBUMIN 2.8 g/dL (3.5-5.0); ALKALINE PHOSPHATASE 126 U/L (38-126); ANION GAP 14 (5-19); ASPARTATE AMINO TRANSFERASE 44 U/L (14-36); BILIRUBIN,DIRECT 0.3 mg/dL (0.0-0.4); BILIRUBIN,TOTAL 0.4 mg/dL (0.2-1.3); BLOOD UREA NITROGEN 37 mg/dL (7-20); CALCIUM 9.5 mg/dL (8.4-10.2); CARBON DIOXIDE 23 mmol/L (22-30); CHLORIDE 104 mmol/L (98-107); GLUCOSE 260 mg/dL (75-110); PHOSPHORUS 4.1 mg/dL (2.5-4.5); POTASSIUM 4.5 mmol/L (3.6-5.0); SODIUM 141.3 mmol/L (137-145); TOTAL PROTEIN 5.2 g/dL (6.3-8.2)
[2018-10-19] MEDS: CEFTRIAXONE SODIUM 1,000 MG in DEXTROSE 5%-WATER 50 ML IV SCH (10:15)
[2018-10-19] MEDS: PYRIDOXINE HCL 50 MG TABLET PO SCH (10:15)
[2018-10-19] MEDS: TIOTROPIUM BROMIDE DPI 5 CAP/KIT (18 MCG/CAP) IH SCH (10:15)
[2018-10-19] MEDS: SALMETEROL XINAFOATE DISKUS 50 MCG/1 DOSE 28 DOSE IH SCH ×2 (10:15→22:25)
[2018-10-19] MEDS: FAMOTIDINE 20 MG TABLET PO SCH ×2 (10:16→22:25)
[2018-10-19] MEDS: SENNOSIDES/DOCUSATE 8.6-50 MG 1 EACH TABLET PO SCH ×2 (10:16→17:23)
[2018-10-19] MEDS: DILTIAZEM HCL 180 MG CAPSULE.CR PO SCH ×2 (10:16→22:25)
[2018-10-19] MEDS: CHOLECALCIFEROL (D3) 1,000 UNIT TABLET PO SCH (10:17)
[2018-10-19] MEDS: FERROUS SULFATE 325 MG TABLET PO SCH (10:17)
[2018-10-19] MEDS: GUAIFENESIN 600 MG TABLET.SA PO SCH ×2 (10:17→22:25)
[2018-10-19] MEDS: MULTIVITAMIN TABLET PO SCH (10:17)
[2018-10-19] MEDS: ENOXAPARIN SODIUM INJ 30 MG/0.3 ML DISP.SYRIN SUBCUT SCH (10:17)
[2018-10-19] MEDS: AZITHROMYCIN 500 MG in DEXTROSE 5%-WATER 250 ML IV SCH (10:18)
[2018-10-19] MEDS: METHYLPREDNISOLONE INJ 125 MG/2 ML SDV IV SCH ×2 (15:04→17:16)
[2018-10-19] MEDS: LOSARTAN POTASSIUM 50 MG TABLET PO SCH (17:22)
[2018-10-19] MEDS: ATORVASTATIN CALCIUM 10 MG TABLET PO SCH (17:22)
[2018-10-19] MEDS: EZETIMIBE 10 MG TABLET PO SCH (17:23)
--- NOTE | 2018-10-19 21:18 | PDOC PROGRESS REPORT ---
Subjective Progress Note for:: 10/19/18 Subjective:: VAL MACIEL is a 73 year old female with a PMH of COPD, HTN, HLD, iron deficiency anemia, valvular heart disease. She presents to [facility] ED for shortness of breath. The patient is admitted to the hospitalist service for PNA and COPD exacerbation. The patient was seen this morning on rounds. She is resting comfortably in bed on room air. Her is at the bedside. The patient states she feels better today. She endorses weakness, fatigue, general malaise. The patient is able to answer all questions without pause. LCTA. (+) productive cough. The patient's blood pressure has been elevated throughout her hospitalization, despite being on her home anti-HTN regimen. Plan for Renal artery US and increase Metoprolol from 50-->100mg BID Reason For Visit: PNEUMONIA Physical Exam Vital Signs: Temp Pulse Resp BP Pulse Ox 97.6 F 72 18 182/49 H 93 10/19/18 19:41 10/19/18 20:23 10/19/18 20:23 10/19/18 19:41 10/19/18 20:23 Intake & Output 10/18/18 10/19/18 10/20/18 06:59 06:59 06:59 Intake Total 1740 1140 1517 Output Total 200 Balance 6461 633 5696 Weight 68 kg 68 kg General appearance: PRESENT: no acute distress, well-developed, well-nourished Head exam: PRESENT: atraumatic, normocephalic Eye exam: PRESENT: conjunctiva pink, EOMI, PERRLA. ABSENT: scleral icterus Ear exam: PRESENT: normal external ear exam Mouth exam: PRESENT: moist, tongue midline Neck exam: ABSENT: carotid bruit, JVD, lymphadenopathy, thyromegaly Respiratory exam: PRESENT: clear to auscultation rajan. ABSENT: rales, rhonchi, wheezes Cardiovascular exam: PRESENT: RRR. ABSENT: diastolic murmur, rubs, systolic murmur Pulses: PRESENT: normal radial pulses, normal dorsalis pedis pul Vascular exam: PRESENT: normal capillary refill GI/Abdominal exam: PRESENT: normal bowel sounds, soft. ABSENT: distended, guarding, mass, organolmegaly, rebound, tenderness Rectal exam: PRESENT: deferred Extremities exam: PRESENT: full ROM. ABSENT: calf tenderness, clubbing, pedal edema Neurological exam: PRESENT: alert, awake, oriented to person, oriented to place, oriented to time, oriented to situation Psychiatric exam: PRESENT: appropriate affect, normal mood Skin exam: PRESENT: dry, intact, warm. ABSENT: cyanosis, rash Results Laboratory Results: 10/19/18 08:31 10/19/18 08:31 10/19/18 10/19/18 08:31 08:31 WBC 12.8 H RBC 3.88 Hgb 10.7 L Hct 32.1 L MCV 83 MCH 27.6 MCHC 33.3 RDW 22.3 H Plt Count 481 H Sodium 141.3 Potassium 4.5 Chloride 104 Carbon Dioxide 23 Anion Gap 14 BUN 37 H Creatinine 0.80 Est GFR ( Amer) > 60 Est GFR (Non-Af Amer) > 60 Glucose 260 H Calcium 9.5 Phosphorus 4.1 Magnesium 2.0 Total Bilirubin 0.4 AST 44 H ALT 82 H Alkaline Phosphatase 126 Total Protein 5.2 L Albumin 2.8 L 10/17/18 04:31 NT-Pro-B Natriuret Pep 2200 H Impressions: Chest X-Ray 10/16/18 11:40 IMPRESSION: Right upper lobe pneumonia. Status: Imported from PACS Assessment and Plan - Diagnosis (1) Acute respiratory failure Qualifiers: Respiratory failure complication: hypoxia Qualified Code(s): J96.01 - Acute respiratory failure with hypoxia Is this a current diagnosis for this admission?: Yes Plan: Secondary to COPD exacerbation stemming from pneumonia Requiring supplemental oxygen via nasal cannula to maintain SPO2> 88% CXR shows RUL lobar pneumonia Sputum cultures pending Continue azithromycin and Rocephin IV for community acquired pneumonia increase frequency of Scheduled and PRN nebulizer treatments increase frequency and dosage of IV Solu-Medrol Spiriva and serevent Twice daily Mucinex Tylenol as needed for fever Wean supplemental oxygen as tolerated (2) Pneumonia Qualifiers: Pneumonia type: due to unspecified organism Laterality: right Lung location: upper lobe of lung Qualified Code(s): J18.1 - Lobar pneumonia, unspecified organism Is this a current diagnosis for this admission?: Yes Plan: plan as above (3) COPD (chronic obstructive pulmonary disease) Is this a current diagnosis for this admission?: Yes Plan: plan as above (4) HTN (hypertension) Is this a current diagnosis for this admission?: Yes Plan: PMH HTN Poor BP control, SBP 145-160 during hospitalization Continue home dose HCTZ Increased home Toprol dosage from 50 mg daily to 100 mg BID Cardizem 180 mg twice daily IV hydralazine and Lopressor PRN SBP>170 (5) HLD (hyperlipidemia) Is this a current diagnosis for this admission?: Yes Plan: PMH HLD Continue home dose statin therapy Lipid panel acceptable (6) Iron deficiency anemia Is this a current diagnosis for this admission?: Yes Plan: PMH iron deficiency anemia Iron, TIBC are low. Ferretin levels are high Continue home dose iron supplements - Time Time Spent with patient: 15-24 minutes Medications reviewed and adjusted accordingly: Yes Anticipated discharge: Home Within: within 24 hours - Inpatient Certification Based on my medical assessment, after consideration of the patient's comorbidities, presenting symptoms, or acuity I expect that the services needed warrant INPATIENT care.: Yes I certify that my determination is in accordance with my understanding of Medicare's requirements for reasonable and necessary INPATIENT services [42 CFR 412.3e].: Yes Medical Necessity: Need for Neurological Checks, Risk of Complication if Not Cared For in Hospital
[2018-10-19] MEDS: LORAZEPAM 1 MG TABLET PO PRN (22:25)
[2018-10-20] MEDS: METHYLPREDNISOLONE INJ 125 MG/2 ML SDV IV SCH ×5 (00:53→23:59)
[2018-10-20] MEDS: HYDRALAZINE HCL INJ/PF 20 MG/1 ML SDV IV PRN ×3 (00:54→12:27)
[2018-10-20] MEDS: METOPROLOL SUCCINATE 50 MG TAB.SR.24H PO SCH ×2 (05:25→17:37)
[2018-10-20] MEDS: IPRATROPIUM/ALBUTEROL 0.5-2.5 MG/3 ML AMPUL NEB SCH ×4 (08:16→20:08)
--- NOTE | 2018-10-20 08:47 | RADIOLOGY REPORT (SQ) ---
EXAM DESCRIPTION: U/S RETROPERITON LTD COMPLETED DATE/TIME: 10/20/2018 6:22 am REASON FOR STUDY: REFRACTORY HTN COMPARISON: None. TECHNIQUE: Dynamic and static grayscale images acquired of the kidneys and bladder and recorded on P ACS. Additional selected color Doppler and spectral images recorded. LIMITATIONS: None. FINDINGS: RIGHT KIDNEY: 11 cm in length with normal cortical thickness and mild increased echogenic ity. No solid or suspicious masses. No hydronephrosis. No calcifications. LEFT KIDNEY: 11 cm in length with normal cortical thickness and mild increased echogenicity. No solid or suspicious masses. No hydronephrosis. No calcifications. BLADDER: No masses. OTHER FINDINGS: No other significant finding. IMPRESSION: Normal size kidneys with normal cortical thickness but increased echogenicity from chron ic medical renal disease TECHNICAL DOCUMENTATION: JOB ID: [id number] [employer]- All Rights Reserved Reading location - IP/workstation name: [email or web address]
[2018-10-20] MEDS: HYDROCHLOROTHIAZIDE 12.5 MG TABLET PO SCH (08:54)
[2018-10-20] MEDS: ASPIRIN 325 MG TABLET PO SCH (08:55)
[2018-10-20] MEDS: CLOPIDOGREL BISULFATE 75 MG TABLET PO SCH (08:55)
[2018-10-20] MEDS: CHOLECALCIFEROL (D3) 1,000 UNIT TABLET PO SCH (09:43)
[2018-10-20] MEDS: SENNOSIDES/DOCUSATE 8.6-50 MG 1 EACH TABLET PO SCH ×2 (09:43→17:37)
[2018-10-20] MEDS: MULTIVITAMIN TABLET PO SCH (09:43)
[2018-10-20] MEDS: GUAIFENESIN 600 MG TABLET.SA PO SCH ×2 (09:43→22:21)
[2018-10-20] MEDS: DILTIAZEM HCL 180 MG CAPSULE.CR PO SCH ×2 (09:43→22:21)
[2018-10-20] MEDS: CEFTRIAXONE SODIUM 1,000 MG in DEXTROSE 5%-WATER 50 ML IV SCH (09:44)
[2018-10-20] MEDS: AZITHROMYCIN 500 MG in DEXTROSE 5%-WATER 250 ML IV SCH (09:44)
[2018-10-20] MEDS: PYRIDOXINE HCL 50 MG TABLET PO SCH (09:44)
[2018-10-20] MEDS: FAMOTIDINE 20 MG TABLET PO SCH ×2 (09:44→22:21)
[2018-10-20] MEDS: SALMETEROL XINAFOATE DISKUS 50 MCG/1 DOSE 28 DOSE IH SCH ×2 (09:44→22:21)
[2018-10-20] MEDS: TIOTROPIUM BROMIDE DPI 5 CAP/KIT (18 MCG/CAP) IH SCH (09:45)
[2018-10-20] MEDS: ENOXAPARIN SODIUM INJ 40 MG/0.4 ML DISP.SYRIN SUBCUT SCH (09:45)
[2018-10-20] MEDS: FERROUS SULFATE 325 MG TABLET PO SCH (09:46)
[2018-10-20] MEDS ORDERED: CLONIDINE HCL 0.1 MG TABLET PO SCH (12:30)
[2018-10-20] MEDS ORDERED: CLONIDINE HCL 0.1 MG TABLET PO ONE ×2 (16:30→22:30)
[2018-10-20] MEDS ORDERED: DEXTROSE 40% GEL 15 GM TUBE PO PRN (17:30)
[2018-10-20] MEDS ORDERED: DEXTROSE 50%-WATER SYRINGE 25 GM/50 ML DOSE IV PRN (17:30)
[2018-10-20] MEDS ORDERED: DEXTROSE 40% GEL 15 GM TUBE X 2 PO PRN (17:30)
[2018-10-20] MEDS ORDERED: GLUCAGON,HUMAN RECOMB 1 MG INJ IM PRN (17:30)
[2018-10-20] MEDS ORDERED: DEXTROSE 50%-WATER SYRINGE 12.5 GM/25 ML DOSE IV PRN (17:30)
[2018-10-20] MEDS: EZETIMIBE 10 MG TABLET PO SCH (17:36)
[2018-10-20] MEDS: ATORVASTATIN CALCIUM 10 MG TABLET PO SCH (17:37)
[2018-10-20] MEDS: LOSARTAN POTASSIUM 50 MG TABLET PO SCH (17:37)
--- NOTE | 2018-10-20 22:02 | PDOC PROGRESS REPORT ---
Subjective Progress Note for:: 10/20/18 Subjective:: VAL MACIEL is a 73 year old female with a PMH of COPD, HTN, HLD, iron deficiency anemia, valvular heart disease. She presents to [facility] ED for shortness of breath. The patient is admitted to the hospitalist service for PNA and COPD exacerbation. The patient was seen this morning on rounds. She is resting comfortably in bed on supplemental O2. Her is at the bedside. The patient was been on/off O2 today because her SPO2 will drop to 90 while at rest. Additionally, her SBP has been very high today, elevated to the 180s. The patient is able to answer all questions without pause. LCTA. (+) productive cough. Plan for Renal artery US and added clonidine 0.2mg BID Reason For Visit: PNEUMONIA Physical Exam Vital Signs: Temp Pulse Resp BP Pulse Ox 98.1 F 66 16 151/53 H 95 10/20/18 20:00 10/20/18 20:08 10/20/18 20:08 10/20/18 20:00 10/20/18 20:08 Intake & Output 10/19/18 10/20/18 10/21/18 06:59 06:59 06:59 Intake Total 1140 2287 1011 Output Total 200 Balance 940 2287 1011 Weight 68 kg 67.9 kg General appearance: PRESENT: no acute distress, well-developed, well-nourished Head exam: PRESENT: atraumatic, normocephalic Eye exam: PRESENT: conjunctiva pink, EOMI, PERRLA. ABSENT: scleral icterus Ear exam: PRESENT: normal external ear exam Mouth exam: PRESENT: moist, tongue midline Neck exam: ABSENT: carotid bruit, JVD, lymphadenopathy, thyromegaly Respiratory exam: PRESENT: clear to auscultation rajan, symmetrical, unlabored. ABSENT: rales, rhonchi, wheezes Cardiovascular exam: PRESENT: RRR. ABSENT: diastolic murmur, rubs, systolic murmur Pulses: PRESENT: normal radial pulses, normal dorsalis pedis pul Vascular exam: PRESENT: normal capillary refill GI/Abdominal exam: PRESENT: normal bowel sounds, soft. ABSENT: distended, guard ing, mass, organolmegaly, rebound, tenderness Rectal exam: PRESENT: deferred Extremities exam: PRESENT: full ROM. ABSENT: calf tenderness, clubbing, pedal edema Musculoskeletal exam: PRESENT: full ROM Neurological exam: PRESENT: alert, awake, oriented to person, oriented to place, oriented to time, oriented to situation Psychiatric exam: PRESENT: appropriate affect, normal mood Skin exam: PRESENT: dry, intact, warm. ABSENT: cyanosis, rash Results Laboratory Results: 10/19/18 08:31 10/19/18 08:31 10/17/18 04:00 Sputum Gram Stain - Final 10/17/18 04:00 Sputum Sputum Culture - Final C.albicans/C.dubliniensis Normal Sheila 10/17/18 04:31 NT-Pro-B Natriuret Pep 2200 H Impressions: Chest X-Ray 10/16/18 11:40 IMPRESSION: Right upper lobe pneumonia. Renal Ultrasound 10/20/18 00:00 IMPRESSION: Normal size kidneys with normal cortical thickness but increased echogenicity from chronic medical renal disease Status: Imported from PACS Assessment and Plan - Diagnosis (1) Acute respiratory failure Qualifiers: Respiratory failure complication: hypoxia Qualified Code(s): J96.01 - Acute respiratory failure with hypoxia Is this a current diagnosis for this admission?: Yes Plan: Secondary to COPD exacerbation stemming from pneumonia Requiring supplemental oxygen via nasal cannula to maintain SPO2> 88% CXR shows RUL lobar pneumonia Sputum cultures blood cultures negative Continue azithromycin and Rocephin IV for community acquired pneumonia Continue Scheduled and PRN nebulizer treatments Continue IV Solu-Medrol Spiriva and serevent Twice daily Mucinex Tylenol as needed for fever Wean supplemental oxygen as tolerated (2) Pneumonia Qualifiers: Pneumonia type: due to unspecified organism Laterality: right Lung location: upper lobe of lung Qualified Code(s): J18.1 - Lobar pneumonia, unspecified organism Is this a current diagnosis for this admission?: Yes Plan: plan as above (3) COPD (chronic obstructive pulmonary disease) Is this a current diagnosis for this admission?: Yes Plan: plan as above (4) HTN (hypertension) Is this a current diagnosis for this admission?: Yes Plan: PMH HTN Poor BP control, SBP 145-180 during hospitalization Continue home dose HCTZ Increased home Toprol dosage from 50 mg daily to 100 mg BID Cardizem 180 mg twice daily Initiated CLonidine 0.2mg PO BID IV hydralazine and Lopressor PRN SBP>170 (5) HLD (hyperlipidemia) Is this a current diagnosis for this admission?: Yes Plan: PMH HLD Continue home dose statin therapy Lipid panel acceptable (6) Iron deficiency anemia Is this a current diagnosis for this admission?: Yes Plan: PMH iron deficiency anemia Iron, TIBC are low. Ferretin levels are high Continue home dose iron supplements - Time Time Spent with patient: 15-24 minutes Anticipated discharge: Home Within: within 24 hours - Inpatient Certification Based on my medical assessment, after consideration of the patient's comorbidities, presenting symptoms, or acuity I expect that the services needed warrant INPATIENT care.: Yes I certify that my determination is in accordance with my understanding of Medicare's requirements for reasonable and necessary INPATIENT services [42 CFR 412.3e].: Yes Medical Necessity: Need For Continuous Telemetry Monitoring, Risk of Complication if Not Cared For in Hospital
[2018-10-20] MEDS: LORAZEPAM 1 MG TABLET PO PRN (22:21)
[2018-10-21] MEDS: METHYLPREDNISOLONE INJ 125 MG/2 ML SDV IV SCH ×2 (05:30→12:35)
[2018-10-21] MEDS: METOPROLOL SUCCINATE 50 MG TAB.SR.24H PO SCH (05:30)
[2018-10-21] MEDS: IPRATROPIUM/ALBUTEROL 0.5-2.5 MG/3 ML AMPUL NEB SCH ×2 (08:39→11:55)
[2018-10-21] MEDS: SENNOSIDES/DOCUSATE 8.6-50 MG 1 EACH TABLET PO SCH (09:27)
[2018-10-21] MEDS: ASPIRIN 325 MG TABLET PO SCH (09:29)
[2018-10-21] MEDS: FAMOTIDINE 20 MG TABLET PO SCH (09:31)
[2018-10-21] MEDS: CLOPIDOGREL BISULFATE 75 MG TABLET PO SCH (09:32)
[2018-10-21] MEDS: FERROUS SULFATE 325 MG TABLET PO SCH ×2 (09:32→09:44)
[2018-10-21] MEDS: GUAIFENESIN 600 MG TABLET.SA PO SCH (09:32)
[2018-10-21] MEDS: CHOLECALCIFEROL (D3) 1,000 UNIT TABLET PO SCH (09:32)
[2018-10-21] MEDS: PYRIDOXINE HCL 50 MG TABLET PO SCH (09:32)
[2018-10-21] MEDS: MULTIVITAMIN TABLET PO SCH (09:32)
[2018-10-21] MEDS: HYDROCHLOROTHIAZIDE 12.5 MG TABLET PO SCH (09:32)
[2018-10-21] MEDS: DILTIAZEM HCL 180 MG CAPSULE.CR PO SCH (09:34)
[2018-10-21] MEDS: SALMETEROL XINAFOATE DISKUS 50 MCG/1 DOSE 28 DOSE IH SCH (09:34)
[2018-10-21] MEDS: TIOTROPIUM BROMIDE DPI 5 CAP/KIT (18 MCG/CAP) IH SCH (09:34)
[2018-10-21] MEDS: ENOXAPARIN SODIUM INJ 40 MG/0.4 ML DISP.SYRIN SUBCUT SCH (09:35)
--- NOTE | 2018-10-21 09:36 | RADIOLOGY REPORT (SQ) ---
EXAM DESCRIPTION: DUPLEX ART/RAYRAY FLOW COMPLETE COMPLETED DATE/TIME: 10/21/2018 8:42 am REASON FOR STUDY: eval for renal art stenosis COMPARISON: None. TECHNIQUE: Realtime and static grayscale images acquired. Selected color Doppler, velocities and spe ctral images recorded. LIMITATIONS: None. FINDINGS: RIGHT KIDNEY: RENAL ARTERY VELOCITIES: 77 cm/sec. Segmental artery not visualized. RENAL VEIN: Color doppler flow present, patent. VELOCITY RATIO: 0.66. Normal waveforms. KIDNEY: Normal size. No significant pathology. LEFT KIDNEY: RENAL ARTERY VELOCITIES: 71 cm/sec. Segmental artery not visualized. RENAL VEIN: Color doppler flow present, patent. VELOCITY RATIO: 0.46. Normal waveforms. KIDNEY: Normal size. No significant pathology. BLADDER: Normal. OTHER: No other significant finding. IMPRESSION: NO DOPPLER EVIDENCE OF HEMODYNAMICALLY SIGNIFICANT RENAL ARTERY STENOSIS. COMMENT: NORMAL RENAL ARTERY/AORTA VELOCITY RATIO IS LESS THAN OR EQUAL TO 3.5. TECHNICAL DOCUMENTATION: JOB ID: [id number] [employer]- All Rights Reserved Reading location - IP/workstation name: [email or web address]
[2018-10-21] MEDS: CEFTRIAXONE SODIUM 1,000 MG in DEXTROSE 5%-WATER 50 ML IV SCH (09:48)
[2018-10-21] MEDS ORDERED: CLONIDINE HCL 0.1 MG TABLET PO SCH (10:00)
[2018-10-21] MEDS: AZITHROMYCIN 500 MG in DEXTROSE 5%-WATER 250 ML IV SCH (10:43)
[2018-10-21 13:26] VITALS: BP 140/51
== END 2018-10-21 15:20 | disposition home or self-care (01) | DRG 193 ==
LOC: ER 10:47 → EH 12:45 → 4N 15:45
PROVIDERS: ADMIT Internal Medicine; ATTEND Internal Medicine
DX: J18.1 Lobar pneumonia, unspecified organism (principal); J96.01 Acute respiratory failure with hypoxia; J44.1 Chronic obstructive pulmonary disease with (acute) exacerbation; D50.9 Iron deficiency anemia, unspecified; E78.00 Pure hypercholesterolemia, unspecified; I10 Essential (primary) hypertension; E11.8 Type 2 diabetes mellitus with unspecified complications; F17.210 Nicotine dependence, cigarettes, uncomplicated; Z79.01 Long term (current) use of anticoagulants; Z79.84 Long term (current) use of oral hypoglycemic drugs; Z79.82 Long term (current) use of aspirin; Z79.899 Other long term (current) drug therapy
CPT/HCPCS: 36415; 71046; 76775; 80053; 80061; 81001; 82607; 82728; 82746; 83540; 83550; 83605; 83735; 83880; 84100; 85025; 85027; 85045; 87040; 87070; 87205; 87804; 93005; 93010; 93975; 99291; J0360; J0456; J0696; J1650; J2920; J2930; J3490; J7060; J7620

== ENCOUNTER → 2018-11-07 | Outpatient (CLI) | payer MEDICARE ==
--- NOTE | 2018-11-07 14:12 | RADIOLOGY REPORT (SQ) ---
EXAM DESCRIPTION: CHEST 2 VIEWS COMPLETED DATE/TIME: 11/07/2018 1:52 pm REASON FOR STUDY: J44.9 COPD J18.9 PNEUMONIA COMPARISON: 10/16/2018 EXAM PARAMETERS: NUMBER OF VIEWS: two views TECHNIQUE: Digital Frontal and Lateral radiographic views of the chest acquired. RADIATION DOSE: NA LIMITATIONS: none FINDINGS: LUNGS AND PLEURA: Minimal residual right upper lobe airspace disease. Lung darling otherwi se clear. No effusions. MEDIASTINUM AND HILAR STRUCTURES: No masses or contour abnormalities. HEART AND VASCULAR STRUCTURES: Heart size is stable. No failure. BONES: No acute findings. HARDWARE: None in the chest. OTHER: No other significant finding. IMPRESSION: Minimal residual right upper lobe airspace disease. Findings are significantly improved from prior study. TECHNICAL DOCUMENTATION: JOB ID: [id number] [employer]- All Rights Reserved Reading location - IP/workstation name: [email or web address]
== END ==
LOC: RAD 13:30
PROVIDERS: ATTEND Specialist
DX: J44.9 Chronic obstructive pulmonary disease, unspecified (principal); J18.9 Pneumonia, unspecified organism
CPT/HCPCS: 71046

== ENCOUNTER → 2020-02-22 | Outpatient (CLI) | payer MEDICARE ==
--- NOTE | 2020-02-22 17:21 | WOMENS IMAGING REPORT ---
EXAM DESCRIPTION: BILAT SCREENING MAMMO W/CAD IMAGES COMPLETED DATE/TIME: 02/22/2020 10:36 am REASON FOR STUDY: ROUTINE SCREENNG Z12.31 F17.200 NICOTINE DEPENDENCE, UNSPECIFIED, UNCOMPLICATED Z 12.31 ENCNTR SCREEN MAMMOGRAM FOR MALIGNANT NEOPLASM OF DAVID M85.50 ANEURYSMAL BONE CYST, UNSPECIFIE D SITE COMPARISON: Multiple since 2013 EXAM PARAMETERS: Standard craniocaudal and mediolateral oblique views of each breast recorded using digital acquisition. Read with the assistance of CAD. .[facility] - Interventional Imaging Radio Rigger Version 9.2 LIMITATIONS: None. FINDINGS: No suspicious masses, suspicious calcifications or architectural distortion. No areas of c oncern. IMPRESSION: NEGATIVE MAMMOGRAM. BIRADS 1 BREAST DENSITY: b. There are scattered areas of fibroglandular density. BIRAD: ASSESSMENT: 1 NEGATIVE RECOMMENDATION: ROUTINE SCREENING Please continue yearly bilateral screening mammography/tomosynthesis in February 2021 COMMENT: The patient has been notified of the results by letter per [place] requirements. Additional no tification policies are in place for contacting patient with suspicious or incomplete findings. Quality ID #[id number]: The [employer] recommends an annual screening mammogram for women aged 40 years or over. This facility utilizes a reminder system to ensure that all patients receive reminder letters, and/or direct phone calls for appointments. This includes reminders for routine scr eening mammograms, diagnostic mammograms, or other Breast Imaging Interventions when appropriate. Th is patient will be placed in the appropriate reminder system. TECHNICAL DOCUMENTATION: FINDING NUMBER: (1) ASSESSMENT: (1) JOB ID: [id number] 2010 [employer]- All Rights Reserved Reading location - IP/workstation name: [email or web address]
--- NOTE | 2020-02-23 18:10 | RADIOLOGY REPORT (SQ) ---
EXAM DESCRIPTION: CT LUNG CANCER SCREENING IMAGES COMPLETED DATE/TIME: 02/22/2020 9:52 am REASON FOR STUDY: F17.200 NICOTINE DEPENDENCE, UNSPECIFIED, UNCOMPLICATED F17.200 NICOTINE DEPENDEN CE, UNSPECIFIED, UNCOMPLICATED Z12.31 ENCNTR SCREEN MAMMOGRAM FOR MALIGNANT NEOPLASM OF DAVID M85.50 ANEURYSMAL BONE CYST, UNSPECIFIED SITE Has the patient had a Chest CT scan within the past year? N Was the patient offered tobacco cessation counseling? Y Was the patient engaged in shared decision making for this test? Y Does the patient have signs or symptoms of Lung Cancer? N Is the patient a smoker? Y How many pack years? 50 YEAR How many years since quitting smoking? N/A Patients age: 74 COMPARISON: None. TECHNIQUE: Low Dose CT scan performed of the chest without intravenous contrast for purposes of scre ening for lung cancer. Images reviewed with lung, soft tissue and bone windows. Reconstructed coron al and sagittal MPR images reviewed. All images stored on PACS. All CT scanners at this facility use dose modulation, iterative reconstruction, and/or weight based d osing when appropriate to reduce radiation dose to as low as reasonably achievable (ALARA). [facility]: Dose Right [facility]: CareDose [facility]: Dose Right [facility]: Teradose 4D [facility]: [employer] RADIATION DOSE: CT Rad equipment meets quality standard of care and radiation dose reduction techniq ues were employed. CTDIvol: 2.1 mGy. DLP: 80 mGy-cm. mGy. . LIMITATIONS: None FINDINGS: LUNGS AND PLEURA: No masses or nodules. No pleural effusions or calcifications. No pne umothorax. No scarring or interstitial changes. HILAR AND MEDIASTINAL STRUCTURES: No identified masses. No abnormal nodes. HEART AND VASCULAR STRUCTURES: No aortic aneurysm. No pericardial effusion. No cardiac devices. CORONARY ARTERY CALCIFICATIONS: Marked calcifications. UPPER ABDOMEN, THYROID, BONES, OTHER SOFT TISSUES: No significant findings. IMPRESSION: NO SIGNIFICANT FINDING IN THE LUNGS ON NON-CONTRASTED CHEST CT. OTHER FINDINGS ABOVE. LUNGRADS: LUNGRADS: 1 NEGATIVE. NO NODULES, OR DEFINITELY BENIGN NODULES MODIFIER: S CLINICALLY SIGNIFICANT OR POTENTIALLY CLINICALLY SIGNIFICANT FINDINGS (non lung cancer) RECOMMENDATION: Continue annual screening with LDCT in 12 months. COMMENT: CRITERIA: No lung nodules. Nodules with specific calcifications: Complete, central, popcorn, concentric rings and fat containin g nodules. TECHNICAL DOCUMENTATION: JOB ID: [id number] Quality ID # [id number]: Final reports with documentation of one or more dose reduction techniques (e.g., Au tomated exposure control, adjustment of the mA and/or kV according to patient size, use of iterative reconstruction technique) 2010 [facility] Reading location - IP/workstation name: [email or web address]
== END ==
LOC: WI 09:18
PROVIDERS: ATTEND Family Medicine
DX: Z12.31 Encounter for screening mammogram for malignant neoplasm of breast (principal); Z12.2 Encounter for screening for malignant neoplasm of respiratory organs; Z87.891 Personal history of nicotine dependence; I25.10 Atherosclerotic heart disease of native coronary artery without angina pectoris; M85.50 Aneurysmal bone cyst, unspecified site
CPT/HCPCS: 77067; G0297